=== PATIENT | male | born 1985 | race Caucasian/White ===

== ENCOUNTER 2019-10-09 07:30 | Emergency (ER) | payer SELFPAY | END 2019-10-09 08:20 | disposition home or self-care (01) | LOC: NAV ERS 07:30 | DX: L02.412 Cutaneous abscess of left axilla (principal); B37.9 Candidiasis, unspecified; B20 Human immunodeficiency virus [HIV] disease | CPT/HCPCS: 99282 ==

== ENCOUNTER 2019-10-13 16:36 | Emergency (ER) | payer SELFPAY ==
[2019-10-13] MEDS ORDERED: Sulfameth/Trimethoprim DS 800-160mg TAB ONE (17:00)
[2019-10-13] MEDS ORDERED: Acetaminophen 500 MG TAB ONE (17:00)
== END 2019-10-13 17:15 | disposition home or self-care (01) ==
LOC: NAV ERS 16:36
DX: L02.412 Cutaneous abscess of left axilla (principal); B20 Human immunodeficiency virus [HIV] disease; F17.210 Nicotine dependence, cigarettes, uncomplicated
CPT/HCPCS: 99283